=== PATIENT | female | born 1965 | race Caucasian/White ===

== ENCOUNTER 2022-02-16 18:23 | Inpatient (IN) | payer MEDICARE, OTHER ==
[~2022-02-16] VITALS: Ht 165.1 cm; Wt 68.0 kg
[2022-02-16 18:58] VITALS: BP 107/61
[2022-02-16 19:10] VITALS: BP 105/76
[2022-02-16 20:00] VITALS: BP 107/61
[2022-02-16] MEDS ORDERED: MAG HYDROX/AL HYDROX/SIMETH 30 ML UDC PO PRN (20:00)
[2022-02-16] MEDS ORDERED: ACETAMINOPHEN 325 MG TABLET PO PRN (20:00)
[2022-02-16] MEDS ORDERED: MAGNESIUM HYDROXIDE 30 ML UDC PO PRN (20:00)
[2022-02-16] MEDS ORDERED: PALI234D IM (20:57)
[2022-02-16] MEDS ORDERED: DULO30CA2 PO (20:57)
[2022-02-16] MEDS ORDERED: BENZ1TAB7 PO (20:57)
[2022-02-16] MEDS ORDERED: BLOOD SUGAR DIAGNOSTIC 1 EACH STRIP IN ONE (21:00)
--- NOTE | 2022-02-16 23:03 | NUR ---
RN NOTES : ADMISSION NOTES: ADMITTED THIS 57 Y/O FEMALE PATIENT ADMIT FROM [facility], ADMITTED TO GPS ON 5150 HOLD, PER HOLD GD, PT. 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 IS POOR HISTORIAN, POOR INSIGHT ,POOR JUDGEMENT , BOTH MD AWARE AND NOTIFIED OF THE ADMISSION, BELONGINGS CONTRABAND WERE DONE , PT. REFUSED TO SIGNS ADMISSION CONSENT PAPERS DUE TO CONFUSED /DISORGNIZED, REFUSED INTIALLY BLOOD SUGAR CHECK AND REFUSED SKIN ASSESSMENT, ENCOURAGED PT. STRONGLY REFUSED , PT. REFUSED TO PROVIDE MEDICAL HX, PSYCHIATRIC HX, LIST OF MEDICATIONS, ENCOURAGED BUT PT. STILL REFUSED, PT. IS POOR HISTORIAN, POOR INSIGHT ,POOR JUDGEMENT , BOTH MD AWARE AND NOTIFIED OF THE ADMISSION, BELONGINGS CONTRABAND WERE DONE ,ENCOURAGED PT. TO TAKE SHOWER, PT. RIGHTS DISCUSS BY DIRECTOR MARKET INTELLIGENCE , PROVIDE THE PT. WITH HANDBOOK, AND MEDICATIONS GUIDE, ENVIRONMENTAL SAFETY CHECK DONE, ENCOURAGED PT. VERBALIZED ANY FEELING CONCERN TO STAFF, ORIENT TO UNIT POLICY, NO ACUTE DISTRESS NOTED,VITAL SIGNS WNL ,DENIES ANY PAIN AT THIS TIME,WILL CONTINUE TO MONITOR FOR Q15 SAFETY AND BEHAVIOR.
--- NOTE | 2022-02-17 04:57 | NUR ---
RN NOTES: PT.REFUSED SKIN ASSESSMENT ENCOURAGED X3 EXPLINED RISKS AND BENEFITS BUT PT. STRONGLY REFUSED , PER PT. MY SKIN IS FINE, PT. BEHAVIOR UNCOOPERTIVE AGGRESSIVE PARNOID AT THIS TIME.
[2022-02-17 08:06] LABS: BASOPHILS % (AUTO) 0.5 % (0.0-2.0); HEMATOCRIT 39 % (33-45); HEMOGLOBIN 12.8 g/dL (11.5-14.8); LYMPHOCYTES # (AUTO) 1.7 K/uL (0.8-4.8); LYMPHOCYTES % (AUTO) 25.8 % (20.0-44.0); MEAN CORPUSCULAR HGB CONC 33 g/dl (31.0-36.0); MEAN CORPUSCULAR VOLUME 94 fL (82-100); MONOCYTES # (AUTO) 0.7 K/uL (0.1-1.30); MONOCYTES % (AUTO) 10.3 % (2.0-12.0); NEUTROPHILS % (AUTO) 60.4 % (43.0-81.0); PLATELET COUNT (AUTO) 251 K/uL (150-450); RED BLOOD CELL COUNT(AUTO) 4.14 MIL/uL (4.0-5.2); WHITE BLOOD COUNT (AUTO) 6.6 K/uL (4.3-11.0)
[2022-02-17 08:26] LABS: CALCIUM, SERUM 8.8 mg/dL (8.5-10.1); CREATININE 0.6 mg/dL (0.6-1.3); POTASSIUM 4.1 mmol/L (3.5-5.1)
[2022-02-17] MEDS ORDERED: PERMETHRIN 59 ML BOTTLE TP ONE (10:00)
[2022-02-17] MEDS: LITHIUM CARBONATE 150 MG CAPSULE PO SCH ×2 (12:12→16:43)
[2022-02-17] MEDS: risperiDONE 1 MG TABLET PO SCH ×2 (12:12→16:43)
[2022-02-17] MEDS ORDERED: INSULIN REGULAR, HUMAN 100 UNIT/ML 10 ML VIAL ONE (14:28)
[2022-02-17 16:00] VITALS: BP_SYST 100; BP_SYST 102; BP_DIAS 55; BP_DIAS 61
[2022-02-17] MEDS ORDERED: risperiDONE 1 MG TABLET PO SCH (17:00)
[2022-02-17 21:00] VITALS: BP 110/74
[2022-02-17] MEDS: LORAZEPAM 0.5 MG TABLET PO PRN (21:12)
--- NOTE | 2022-02-17 21:12 | NUR ---
RN NOTES: ANXIETY PATIENT IS ANXIOUS, RESTLESS,PARANOID , NON REDIRECTABLE. PRN ATIVAN 0.5 MG PO ADMINISTERED. WILL CONTINUE TO MONITOR.
[2022-02-18] MEDS: TEMAZEPAM 7.5 MG CAPSULE PO PRN (01:17)
--- NOTE | 2022-02-18 01:20 | NUR ---
RN NOTES: INSOMNIA PT. C/O UNABLE TO SLEEP RESTORIL PRN 7.5 MG PO GIVEN PER PT. REQUEST,WILL CONTINUE TO MONITOR.
--- NOTE | 2022-02-18 05:42 | NUR ---
RN NOTES: UNABLE TO OBTAIN URINE SPECIMEN DUE TO PT. CONFUSED FORGETFUL KEEP FLUSHED IN TOILET.
--- NOTE | 2022-02-18 06:40 | NUR ---
GPS RN NOTES PATIENT REFUSING SKIN ASSESSMENT AND PHOTOS PER PROTOCOL; PATIENT ONLY WANTS MEDICATIONS IF NEEDED; PATIENT RE-EDUCATED ON COMPLIANCE, PATIENT VERBALIZED, " I DO NOT CARE, JUST GIVE ME MY MEDICINE." PT. CONFUSED FORGETFUL,UNCOOPERTIVE WITH ADL"S CARE, NONREDIRECTABLE , PT. CAN BE CONTINENT AND INCONTINENT ,SOME TIMES URINATING ON THE BED, PT. REFUSING AM CARE CHANGING SOLID LINEN, CLOTHING WITH URINATION CHARGE NURSE MADE AWARE
[2022-02-18] MEDS: risperiDONE 1 MG TABLET PO SCH ×3 (07:24→17:43)
[2022-02-18] MEDS: LITHIUM CARBONATE 150 MG CAPSULE PO SCH ×2 (07:25→17:43)
[2022-02-18] MEDS: NICOTINE PATCH (14MG) 14 MG PATCH.TD24 TD SCH (08:35)
[2022-02-18] MEDS ORDERED: LITHIUM CARBONATE 150 MG CAPSULE PO ONE (11:00)
[2022-02-18 16:00] VITALS: BP 125/60
--- NOTE | 2022-02-18 17:38 | NUR ---
GPS/RN PT UNABLE TO FOLLOW DIRECTIONS FOR URINE COLLECTION. WILL ENDORSE TO ARCADIO TYLER TO FOLLOW UP
[2022-02-18 20:24] VITALS: BP 153/84
[2022-02-18] MEDS ORDERED: risperiDONE 1 MG TABLET PO SCH (22:00)
--- NOTE | 2022-02-18 22:06 | NUR ---
GPS RN NOTE: PATIENT REFUSED TO COLLECT URINE AT THIS TIME, STATED," I DON'T WANT TO DO IT, I DON'T WANT YOU TO PUT ANYTHING ON THE TOILET, IF YOU DO, I WON'T USE THE TOILET." PATIENT WAS COOPERATIVE TAKING HER MEDICATION BUT UNCOOPERATIVE WITH URINE SPECIMEN COLLECTION. PATIENT ALSO DOES NOT TO CALLED BY NAME CECILIA, STATED," I AM NOT CECILIA, I AM NORMA." PATIENT IS DISORGANIZED, REFUSES TO COOPERATE. WILL CONTINUE TO MONITOR. PATIENT HAD SNACK AND TOLERATED WELL.
[2022-02-19] MEDS: risperiDONE 1 MG TABLET PO SCH ×4 (09:29→21:19)
[2022-02-19] MEDS: LITHIUM CARBONATE 150 MG CAPSULE PO SCH ×2 (09:29→16:14)
[2022-02-19] MEDS: NICOTINE PATCH (14MG) 14 MG PATCH.TD24 TD SCH (09:32)
--- NOTE | 2022-02-19 10:23 | NUR ---
JACI Initial Discharge Note: Patient is currently homeless and will need a nursing facility. Patient does not have any supportive contact. JACI will work with the MD and treatment team to help coordinate appropriate discharge.
--- NOTE | 2022-02-19 10:24 | NUR ---
SW Admit Source: Patient placed on 5150 hold for GD. Patient was found on someones resident. Patient was confused and disorganized. Patient is homeless and will be needing a placement.
[2022-02-19 16:00] VITALS: BP 118/74
[2022-02-19 19:26] VITALS: BP 118/74
[2022-02-19 19:32] VITALS: BP 100/58
[2022-02-19 20:02] LABS: BILIRUBIN,URINE NEGATIVE (NEGATIVE); COLOR,URINE YELLOW (YELLOW); LEUKOCYTE ESTERASE ,URINE NEGATIVE (NEGATIVE); NITRITE, URINE NEGATIVE (NEGATIVE); PH,URINE 6.5 (5.0-8.0); PROTEIN,URINE NEGATIVE (NEGATIVE); UGLUCOSE NEGATIVE (NEGATIVE); UROBILINOGEN,URINE 0.2 EU/dL (0.2)
--- NOTE | 2022-02-20 05:54 | NUR ---
GPS RN NOTE PATIENT BECAME ANXIOUS, LOUD AND RESTLESS, OFFERED ATIVAN PRN BUT PATIENT REFUSED. PATIENT DID CALM DOWN AFTER A WHILE AND IS ASLEEP AT THIS TIME. WILL CONTINUE TO MONITOR.
[2022-02-20 08:39] VITALS: BP 108/54
[2022-02-20] MEDS: LITHIUM CARBONATE 150 MG CAPSULE PO SCH ×3 (08:41→16:57)
[2022-02-20] MEDS: NICOTINE PATCH (14MG) 14 MG PATCH.TD24 TD SCH (08:41)
[2022-02-20] MEDS: risperiDONE 1 MG TABLET PO SCH ×4 (08:41→21:36)
--- NOTE | 2022-02-20 10:14 | NUR ---
SNF Referral: JACI sent clinicals to Kenya wolff from [facility] ([phone]) for placement option. SW sent H & P, progress notes, and medication list.
[2022-02-20 16:16] VITALS: BP 103/67
[2022-02-20 20:24] VITALS: BP 101/52
[2022-02-21 07:19] LABS: ALBUMIN 2.9 g/dL (3.4-5.0); BILIRUBIN,TOTAL 0.2 mg/dL (0.2-1.0); CREATININE 0.5 mg/dL (0.6-1.3); POTASSIUM 4.6 mmol/L (3.5-5.1); TOTAL PROTEIN, SERUM 6.8 g/dL (6.4-8.2)
[2022-02-21 07:28] LABS: BASOPHILS % (AUTO) 0.5 % (0.0-2.0); EOSINOPHILS % (AUTO) 2.8 % (0.0-6.0); HEMATOCRIT 43 % (33-45); LYMPHOCYTES # (AUTO) 1.8 K/uL (0.8-4.8); LYMPHOCYTES % (AUTO) 31.2 % (20.0-44.0); MEAN CORPUSCULAR HGB CONC 33 g/dl (31.0-36.0); MEAN CORPUSCULAR VOLUME 95 fL (82-100); MONOCYTES # (AUTO) 0.6 K/uL (0.1-1.30); MONOCYTES % (AUTO) 10.1 % (2.0-12.0); NEUTROPHILS # (AUTO) 3.2 K/uL (1.8-8.9); NEUTROPHILS % (AUTO) 55.4 % (43.0-81.0); PLATELET COUNT (AUTO) 206 K/uL (150-450); RED BLOOD CELL COUNT(AUTO) 4.52 MIL/uL (4.0-5.2); WHITE BLOOD COUNT (AUTO) 5.8 K/uL (4.3-11.0)
[2022-02-21 08:00] VITALS: BP 113/71
[2022-02-21] MEDS: NICOTINE PATCH (14MG) 14 MG PATCH.TD24 TD SCH (08:21)
[2022-02-21] MEDS: LITHIUM CARBONATE 150 MG CAPSULE PO SCH ×3 (08:24→16:34)
[2022-02-21] MEDS: risperiDONE 1 MG TABLET PO SCH ×3 (08:24→21:46)
[2022-02-21 16:32] VITALS: BP 101/54
[2022-02-21 20:00] VITALS: BP 119/75
--- NOTE | 2022-02-21 21:36 | NUR ---
GPS RN NOTE: MEDICATION REFUSAL PATIENT REFUSED SCHEDULED RISPERDAL 2MG AT 2100. DESPITE OF EDUCATION PROVIDED REGARDING MEDICATION COMPLIANCE. OFFERED X3, BUT PATIENT CONTINUED TO REFUSE. PATIENT STATED "I DON'T TAKE ANY MEDICINE". WILL CONTINUE TO MONITOR.
[2022-02-22 08:00] VITALS: BP 137/71
[2022-02-22] MEDS: risperiDONE 1 MG TABLET PO SCH ×3 (08:42→22:10)
[2022-02-22] MEDS: LITHIUM CARBONATE 150 MG CAPSULE PO SCH ×3 (08:42→16:18)
[2022-02-22] MEDS: NICOTINE PATCH (14MG) 14 MG PATCH.TD24 TD SCH (08:42)
--- NOTE | 2022-02-22 14:23 | NUR ---
Court Hearing Notification: Pt does not have any family to contact for court hearing.
--- NOTE | 2022-02-22 14:24 | NUR ---
Court Hearing: Patient's court hearing for 4750 was today and it was upheld for GD.
[2022-02-22 16:00] VITALS: BP 113/65
[2022-02-22 20:00] VITALS: BP 119/71
--- NOTE | 2022-02-23 06:41 | NUR ---
GPS RN CLOSING NOTES: PATIENT IS CURRENTLY SLEEPING. PATIENT SLEPT 8HR THIS SHIFT. NO S/S OF DISTRESS NOTED. RESPIRATION EVEN AND UNLABORED WITH EQUAL RISE AND FALL OF THE CHEST, ON ROOM AIR. ALL PATIENT CARE NEEDS HAVE BEEN MET ANTICIPATED. WILL CONTINUE TO MONITOR AND ENDORSE TO AM SHIFT.
[2022-02-23 08:00] VITALS: BP 136/78
[2022-02-23] MEDS: risperiDONE 1 MG TABLET PO SCH ×3 (08:28→22:44)
[2022-02-23] MEDS: LITHIUM CARBONATE 150 MG CAPSULE PO SCH ×3 (08:28→16:49)
[2022-02-23] MEDS: NICOTINE PATCH (14MG) 14 MG PATCH.TD24 TD SCH (08:28)
--- NOTE | 2022-02-23 09:20 | NUR ---
RN Notes: Received pt. awake in bed, responsive to staffs and with poor hygiene. Ate 100% for breakfast, compliant on meds. Pt. is guarded upon approached, suspicious and needy. Encouraged to attend group activity and encouraged to take shower. Needs attended and will continue to monitor for safety.
--- NOTE | 2022-02-23 09:45 | NUR ---
RN Notes: Received pt. awake in bed, responsive to staffs and with poor hygiene. Ate 100% for breakfast, compliant on meds. Pt. is guarded upon approached, suspicious and needy. Encouraged to attend group activity and encouraged to take shower. Needs attended and will continue to monitor for safety. Addendum: 02/23/22 at 1258 by TEODORO FROST RN duplicate notes
--- NOTE | 2022-02-23 14:13 | NUR ---
SW Note: SW spoke with patient in regards to facility acceptance/placement. SW expressed that she is accepted at [facility]. She was agreeable of going to [facility].
--- NOTE | 2022-02-23 14:13 | NUR ---
SNF Contact: SW received a call from Kenya wolff from [facility] ([phone]) who stated that pt is accepted.
[2022-02-23 16:00] VITALS: BP 97/50
--- NOTE | 2022-02-23 19:35 | NUR ---
GPS RN OPENING NOTES: RECEIVED PATIENT IN BED. A/O X1-2. PATIENT APPEARS DEPRESSED, PASSIVE, WITHDRAWN, DISORIENTED, DISORGANIZED AND HAS POOR INSIGHT INTO HER PRESENT ILLNESS. DENIES A/V HALLUCINATIONS, DENIES SI/HI AT THIS TIME. NO S/S OF DISTRESS. RESPIRATION EVEN AND UNLABORED WITH EQUAL RISE AND FALL OF THE CHEST, ON ROOM AIR. OFFERED FLUID AND SNACKS TOLERATED. BED IN LOWEST POSITION AND LOCKED, SIDE RAILS UP X2 FOR SAFETY. CALL DAVIS WITHIN REACH. WILL CONTINUE TO MONITOR Q15 FOR MOOD, SAFETY AND BEHAVIOR.
[2022-02-23 20:23] VITALS: BP 101/60
--- NOTE | 2022-02-24 00:12 | NUR ---
GPS RN NOTES: PATIENT HAS LICE CRAWLING ALL OVER PATIENT BED/ROOM. CALLED [facility] TO CONTACT DR SALES. AWAITING DR SALES'S RESPONSE.
--- NOTE | 2022-02-24 01:23 | NUR ---
GPS RN NOTES: DR SALES ORDERED PERMETHRIN NIX SHAMPOO FOR 02/24/22 AT 1000 TO TREAT PATIENT LICE. PATIENT HAD HER FIRST TREATMENT ON 02/17/22 WHICH WAS 7 DAYS AGO. WILL ENDORSE TO AM SHIFT.
--- NOTE | 2022-02-24 06:56 | NUR ---
GPS RN CLOSING NOTES: PATIENT IS CURRENTLY SLEEPING. PATIENT SLEPT 8HR THIS SHIFT. NO S/S OF DISTRESS NOTED. RESPIRATION EVEN AND UNLABORED WITH EQUAL RISE AND FALL OF THE CHEST, ON ROOM AIR. ALL PATIENT CARE NEEDS HAVE BEEN MET ANTICIPATED. BED IN LOW LOCKED POSITION, SIDE RAILS UP X2 FOR SAFETY. CALL DAVIS WITHIN REACH. WILL CONTINUE TO MONITOR AND ENDORSE TO AM SHIFT.
[2022-02-24 08:00] VITALS: BP 119/76
[2022-02-24] MEDS: LITHIUM CARBONATE 150 MG CAPSULE PO SCH ×3 (08:41→16:35)
[2022-02-24] MEDS: NICOTINE PATCH (14MG) 14 MG PATCH.TD24 TD SCH (08:41)
[2022-02-24] MEDS: risperiDONE 1 MG TABLET PO SCH ×3 (08:41→21:23)
[2022-02-24] MEDS ORDERED: PERMETHRIN 59 ML BOTTLE TP ONE (10:00)
--- NOTE | 2022-02-24 14:43 | NUR ---
RN-NOTES PATIENT IS A/O X2, WITH EPISODE OF FORGETFUL,GUARDED EASILY IRRITABLE WHEN APPROACH BUT COOPERATIVE WITH CARE AND COMPLIANT WITH MEDICATIONS. PATIENT IS CURRENTLY ON CONTACT ISOLATION DUE TO HAVING LICE. TREATMENT WAS GIVEN TODAY WITH COOPERATIONS. PATIENT IS AMBULATORY STEADY GAIT ABLE TO MAKE NEEDS KNOWN TO THE STAFF.
[2022-02-24 16:00] VITALS: BP 106/67
[2022-02-24 20:24] VITALS: BP 121/72
--- NOTE | 2022-02-24 21:58 | NUR ---
RN-NOTES: PATIENT IS AWAKE ALERT, DISORGNIZED , EASILY AGITATED PARANOID FORGETFUL,GUARDED , NEEDY DEMENDING , WHEN APPROACH BUT COOPERATIVE WITH CARE AND COMPLIANT WITH MEDICATIONS. PATIENT IS CURRENTLY ON CONTACT ISOLATION DUE TO HAVING LICE. ABLE TO MAKE NEEDS KNOWN TO THE STAFF, NO ACUTE DISTRESS NOTED , ENCOURAGED PT. TO VERBALIZED ANY FEELING OR CONCERN , NEEDS FREQUENTLY REDIRECTIONS , WILL CONTINUE TO MONITOR Q15 SAFETY AND BEHAVIOR.
[2022-02-25 08:00] VITALS: BP 110/74
[2022-02-25] MEDS: risperiDONE 1 MG TABLET PO SCH ×3 (09:22→21:07)
[2022-02-25] MEDS: NICOTINE PATCH (14MG) 14 MG PATCH.TD24 TD SCH (09:22)
[2022-02-25] MEDS: LITHIUM CARBONATE 150 MG CAPSULE PO SCH ×3 (09:22→17:52)
[2022-02-25 16:00] VITALS: BP 118/70
--- NOTE | 2022-02-25 19:30 | NUR ---
GPS RN NOTES RECEIVED PATIENT PACING IN THE HALLWAY, ALERT AND ORIENTED X2. NO S/S OF ACUTE DISTRESS NOTED. PATIENT REMAINS PARANOID, DISORGANIZED, MED COMPLIANT, DISHEVELED, UNKEMPT, CONFUSED AND MED COMPLIANT. SAFETY PRECAUTIONS IN PLACE. WILL CONTINUE TO MONITOR Q15MIN ROUNDS FOR SAFETY AND BEHAVIOR.
--- NOTE | 2022-02-25 20:00 | NUR ---
GPS RN NOTES PATIENT REFUSED WEEKLY SKIN BODY ASSESSMENT
[2022-02-25 20:53] VITALS: BP 117/74
[2022-02-26 08:00] VITALS: BP 132/78
[2022-02-26] MEDS: risperiDONE 1 MG TABLET PO SCH ×3 (08:57→21:21)
[2022-02-26] MEDS: LITHIUM CARBONATE 150 MG CAPSULE PO SCH ×3 (08:58→16:58)
[2022-02-26] MEDS: NICOTINE PATCH (14MG) 14 MG PATCH.TD24 TD SCH (09:13)
--- NOTE | 2022-02-26 09:14 | NUR ---
RECEIVED PT ASLEEP EASY TO AROUSE, PO MEDICATION COMPLIANT HOWEVER REFUSED THE NICOTINE PATCH EDUCATED PURPOSE OF TAKING THE MEDICATION STILL REFUSED WILL RETRY AGAIN DURING SHIFT, PT ABLE TO MAKE NEEDS KNOWN, SKIN AND SCALP INSPECTED FOR EVIDENCE OF LICE NONE NOTED AT THIS TIME, WILL RECHECK AND ASSESS AGAIN FOR ANY EVIDENCE OF REMAINING LICE, ALERT AND ORIENTED X2. NO SOB, NO S/S OF ACUTE DISTRESS NOTED. PATIENT REMAINS PARANOID, DISORGANIZED, DISHEVELED - ENCOURAGED TO TAKE A SHOWER WITH AID OF CARTON FORMING MACHINE HELPER, UNKEMPT REFUSING CARE OF ADL, CONFUSION NOTED, SAFETY PRECAUTIONS IN PLACE. WILL CONTINUE TO MONITOR DURING ROUNDS FOR SAFETY AND BEHAVIOR.
[2022-02-26 16:00] VITALS: BP 100/65
[2022-02-26 19:52] VITALS: BP 113/71
--- NOTE | 2022-02-26 20:00 | NUR ---
GPS RN OPENING NOTE RECEIVED PATIENT SITTING IN ACTIVITY ROOM WATCHING TV. ALERT AND ORIENTED X 2. DENIES PAIN AT THIS TIME. REMAINS PARANOID, DISORGANIZED, DISHEVELED, UNKEPT. PATIENT IS MED COMPLIANT. AMBULATORY WITH STEADY GAIT. ENCOURAGED TO VERBALIZE FEELINGS AND NEEDS. WILL CONTINUE Q15MIN ROUNDS FOR SAFETY AND BEHAVIOR.
--- NOTE | 2022-02-27 06:55 | NUR ---
GPS RN CLOSING NOTE PATIENT CURRENTLY SLEEPING IN BED. ALERT AND ORIENTED X 2. DENIES PAIN AT THIS TIME. REMAINS PARANOID, DISORGANIZED, DISHEVELED, UNKEPT. PATIENT IS MED COMPLIANT. AMBULATORY WITH STEADY GAIT. ENCOURAGED TO VERBALIZE FEELINGS AND NEEDS. CONTINUES ON CONTACT PRECAUTIONS. WILL ENDORSE PLAN OF CARE TO ONCOMING SHIFT.
[2022-02-27 08:00] VITALS: BP 116/55
[2022-02-27] MEDS: LITHIUM CARBONATE 150 MG CAPSULE PO SCH ×3 (09:14→17:46)
[2022-02-27] MEDS: NICOTINE PATCH (14MG) 14 MG PATCH.TD24 TD SCH (09:14)
[2022-02-27] MEDS: risperiDONE 1 MG TABLET PO SCH ×3 (09:15→21:47)
[2022-02-27 16:00] VITALS: BP 105/64
[2022-02-27 19:42] VITALS: BP 107/60
--- NOTE | 2022-02-27 20:00 | NUR ---
GPS RN OPENING NOTE RECEIVED PATIENT SITTING IN ACTIVITY ROOM, PT ALERT/ORIENTED X 2. PATIENT REMAINS PARANOID, DISORGANIZED, DISHEVELED, UNKEPT. PROVIDED PATIENT WITH SNACKS AND FLUIDS, PT IS AMBULATORY WITH STEADY GAIT. WILL CONTINUE TO MONITOR EVERY Q15MIN FOR SAFETY AND BEHAVIOR.
--- NOTE | 2022-02-28 06:36 | NUR ---
GPS RN CLOSING NOTE PATIENT SLEEPING IN BED, ALERT/ORIENTED X 2, PT ABLE TO MAKE NEEDS KNOWN. PATIENT STABLE ON RA, NO S/S OF DISTRESS OR SOB NOTED, BREATHING EVEN AND UNLABORED. MEDICATIONS GIVEN ORDERED, PT MED COMPLIANT. PATIENT CONSTANTLY ASKING FOR FOOD, JUICE AND COFFEE THROUGHOUT SHIFT, PT NEEDS MET. PT REMAINS PARANOID, DISORGANIZED, DISHEVELED, UNKEPT. ASKED PATIENT IF I COULD CLEAN TRASH FROM BEDSIDE TABLE DURING SHIFT, HOWEVER PATIENT REFUSED AND STATED SHE WILL DO IT. PATIENT IS AMBULATORY WITH STEADY GAIT. SAFETY MEASURES MAINTAINED THROUGHOUT SHIFT WITH Q15 MIN CHECKS FOR SAFETY AND BEHAVIOUR. WILL ENDORSE PLAN OF CARE TO ONCOMING SHIFT.
[2022-02-28 08:00] VITALS: BP 107/61
[2022-02-28] MEDS: LITHIUM CARBONATE 150 MG CAPSULE PO SCH ×3 (09:00→17:00)
[2022-02-28] MEDS: NICOTINE PATCH (14MG) 14 MG PATCH.TD24 TD SCH (09:00)
[2022-02-28] MEDS: risperiDONE 1 MG TABLET PO SCH ×3 (09:00→21:26)
--- NOTE | 2022-02-28 12:47 | NUR ---
SNF Referral: SW sent clinicals to [facility] ([phone]) to mariella Min for placement. SW sent H & P, progress notes, and medication list.
[2022-02-28 16:00] VITALS: BP 120/70
--- NOTE | 2022-02-28 16:16 | NUR ---
Individual Counseling: SW met with pt. in activity room. The pt. is paranoid and not appropriate for counseling at this time. SW will monitor patient's ability to participate in future therapeutic milieu.
[2022-02-28 20:00] VITALS: BP 102/68
[2022-02-28] MEDS: TEMAZEPAM 7.5 MG CAPSULE PO PRN (21:27)
[2022-03-01 08:00] VITALS: BP 127/78
[2022-03-01] MEDS: NICOTINE PATCH (14MG) 14 MG PATCH.TD24 TD SCH (09:05)
[2022-03-01] MEDS: risperiDONE 1 MG TABLET PO SCH ×3 (09:06→21:26)
[2022-03-01] MEDS: LITHIUM CARBONATE 150 MG CAPSULE PO SCH ×3 (09:06→16:20)
--- NOTE | 2022-03-01 10:10 | NUR ---
RN NOTES PT REFUSED ALL LABS.
--- NOTE | 2022-03-01 14:38 | NUR ---
RN NOTES PT HAS REFUSED LABS FOR THIRD TIME.
[2022-03-01 16:00] VITALS: BP 105/66
[2022-03-01 20:00] VITALS: BP 131/72
[2022-03-02 08:00] VITALS: BP 105/69
[2022-03-02] MEDS: risperiDONE 1 MG TABLET PO SCH ×3 (08:23→21:23)
[2022-03-02] MEDS: NICOTINE PATCH (14MG) 14 MG PATCH.TD24 TD SCH (08:23)
[2022-03-02] MEDS: LITHIUM CARBONATE 150 MG CAPSULE PO SCH ×3 (08:24→16:33)
--- NOTE | 2022-03-02 14:59 | NUR ---
RN-NOTES PATIENT IN HER ROOM AWAKE,ALERT NOTED WITH ,GUARDED,NOTED WITH EASILY ANGRY AND DEMANDING BEHAVIOR. COMPLIANT WITH MEDICATIONS. AMBULATORY STEADY GAIT. WILL CONT. MONITORING FOR SAFETY AND BEHAVIOR.
[2022-03-02 16:00] VITALS: BP 101/65
[2022-03-02] MEDS: LORAZEPAM 0.5 MG TABLET PO PRN (16:57)
--- NOTE | 2022-03-02 16:57 | NUR ---
RN-NOTES PATIENT IN THE ROOM,NOTED TALKING AND YELLING TO SELF ANGRY UPON APPROACH. ATIVAN 0.5MG P.O GIVEN PRN ORDER. WILL CONT. MONITORING FOR SAFETY AND BEHAVIOR.
--- NOTE | 2022-03-02 17:55 | NUR ---
RN-NOTES PATIENT LAYING IN BED AWAKE,ALERT,CALM NO ACUTE DISTRESS NOTED.
[2022-03-02 20:00] VITALS: BP 110/71
[2022-03-02 20:34] VITALS: BP 110/71
--- NOTE | 2022-03-02 20:56 | NUR ---
RN NOTES: UPON ENDORSEMENT SHE WAS ON WALKING AROUND, A/OX1-2, NO SIGN OF AGITATION, KEPT ON CLOSE WATCH, NEEDS ANTICIPATED, AMBULATORY, STEADY GAIT.FOR LABS TOMORROW CBC,BMP AND LITHIUM LEVEL IN THE MORNING.FALL AND SAFETY PRECAUTION OBSERVED.
[2022-03-02] MEDS: TEMAZEPAM 7.5 MG CAPSULE PO PRN (22:44)
--- NOTE | 2022-03-02 22:45 | NUR ---
RN NOTES: AROUND 10PM SHE AMBULATE GOING TO THE ACTIVITY ROOM AND JOINED OTHERS, SHE WAS TALKING LOUDLY AND WHEN SHE WAS CORRECTED BY FLOORING MACHINE FEEDER SHE GET AGITATED, HAD EPISODE OF ANGRY OUTBURST, CHARGE NURSE WAS ABLE TO INTERCEPT AND CALM HER; RN REDIRECTED HER BACK TO HER ROOM, AFTER SOMETIME, SHE WENT OUT OF THE ROOM, RN APPROACHED, SHE ASKED FOR A SNACK, GIVEN SANDWICH, WATER AND JELLO, THEN SHE ASKED FOR HER MEDICATION FOR SLEEP. -THIS TIME IS CALMER AND POLITE. Addendum: 03/02/22 at 2084 by VALERIE PEGUERO RN ADDED NOTES: SHE TOOK HER SLEEPING PILL AND WENT TO BED, RN COVERED HER WITH BLANKET AND SHE EXPRESS HER GRATITUDE.
--- NOTE | 2022-03-03 06:09 | NUR ---
RN NOTES: PATIENT REFUSED FOR BLOOD TEST.FIELD TALENT QUALIFICATION SPECIALIST WILL RETURN AGAIN LATER. Addendum: 03/03/22 at 0650 by VALERIE PEGUERO RN ADDED NOTES: ABLE TO REST AND SLEEP AFTER HER SNACKS, ENDORSED FOR CONTINUITY OF CARE.
[2022-03-03 08:00] VITALS: BP 128/79
[2022-03-03] MEDS: risperiDONE 1 MG TABLET PO SCH ×3 (08:31→21:35)
[2022-03-03] MEDS: NICOTINE PATCH (14MG) 14 MG PATCH.TD24 TD SCH (08:31)
[2022-03-03] MEDS: LITHIUM CARBONATE 150 MG CAPSULE PO SCH ×3 (08:32→16:41)
[2022-03-03 08:59] LABS: BASOPHILS % (AUTO) 0.5 % (0.0-2.0); EOSINOPHILS % (AUTO) 2.2 % (0.0-6.0); HEMATOCRIT 40 % (33-45); HEMOGLOBIN 13.3 g/dL (11.5-14.8); LYMPHOCYTES # (AUTO) 1.7 K/uL (0.8-4.8); LYMPHOCYTES % (AUTO) 23.1 % (20.0-44.0); MEAN CORPUSCULAR HGB CONC 33 g/dl (31.0-36.0); MEAN CORPUSCULAR VOLUME 94 fL (82-100); MONOCYTES # (AUTO) 0.6 K/uL (0.1-1.30); MONOCYTES % (AUTO) 8.8 % (2.0-12.0); NEUTROPHILS # (AUTO) 4.7 K/uL (1.8-8.9); NEUTROPHILS % (AUTO) 65.4 % (43.0-81.0); PLATELET COUNT (AUTO) 271 K/uL (150-450); RED BLOOD CELL COUNT(AUTO) 4.25 MIL/uL (4.0-5.2); WHITE BLOOD COUNT (AUTO) 7.2 K/uL (4.3-11.0)
[2022-03-03 09:21] LABS: ALBUMIN 2.9 g/dL (3.4-5.0); BILIRUBIN,TOTAL 0.3 mg/dL (0.2-1.0); CALCIUM, SERUM 8.6 mg/dL (8.5-10.1); CREATININE 0.8 mg/dL (0.6-1.3); POTASSIUM 3.8 mmol/L (3.5-5.1); TOTAL PROTEIN, SERUM 6.6 g/dL (6.4-8.2)
--- NOTE | 2022-03-03 14:02 | NUR ---
RN-NOTES PATIENT IN HER ROOM AWAKE,ALERT X2,GUARDED,NOTED WITH EASILY ANGRY AND DEMANDING BEHAVIOR.FOCUS ON COFFEE AND FOOD. COMPLIANT WITH MEDICATIONS. AMBULATORY STEADY GAIT.ALL NEEDS ATTENDED AND ANTICIPATED. WILL CONT. MONITORING FOR SAFETY AND BEHAVIOR.
[2022-03-03 16:00] VITALS: BP 115/90
[2022-03-03 20:26] VITALS: BP 117/68
--- NOTE | 2022-03-04 06:05 | NUR ---
RN-NOTES PATIENT RESTING IN HER ROOM AWAKE ,GUARDED,NOTED WITH EASILY ANGRY AND DEMANDING BEHAVIOR. COMPLIANT WITH MEDICATIONS. WILL CONTINUE. MONITORING FOR SAFETY AND BEHAVIOR.
[2022-03-04 08:00] VITALS: BP 102/53
[2022-03-04] MEDS: NICOTINE PATCH (14MG) 14 MG PATCH.TD24 TD SCH (09:00)
[2022-03-04] MEDS: LITHIUM CARBONATE 150 MG CAPSULE PO SCH ×3 (09:01→17:12)
[2022-03-04] MEDS: risperiDONE 1 MG TABLET PO SCH ×3 (09:01→21:36)
--- NOTE | 2022-03-04 09:57 | NUR ---
RN-CO: PATIENT IS VISIBLE IN THE UNIT, NEEDY, FOCUS ON FOOD. NEEDS LIMIT SETTING. SHE REDIRECTABLE BUT STAFF NEEDS TO SET LIMITS BECAUSE SHE IS NEEDY AND DEMANDING. RESTLESS , DISHEVELED. SHE IS BETTER. WE WILL CONTINUE TO MONITOR..
[2022-03-04 16:00] VITALS: BP 115/61
--- NOTE | 2022-03-04 18:07 | NUR ---
RN-CO: PT REFUSED COVID TEST. ENDORSE TO THE NEXT SHIFT.
--- NOTE | 2022-03-04 19:15 | NUR ---
GPS RN NOTES PATIENT PACING IN THE HALLWAY. ALERT AND ORIENTED X2. NO S/S OF ACUTE DISTRESS NOTED. PATIENT IS VISIBLE IN THE UNIT, NEEDY, FOCUS ON FOOD, REDIRECTABLE. DENIES SI/HI/AVH AT THIS TIME. SAFETY PRECAUTIONS IN PLACE. WILL CONTINUE TO MONITOR Q15MIN ROUNDS FOR SAFETY AND BEHAVIOR.
--- NOTE | 2022-03-04 20:10 | NUR ---
GPS RN NOTES PATIENT REFUSED WEEKLY SKIN BODY ASSESSMENT.
[2022-03-04 20:20] VITALS: BP 101/59
[2022-03-05 08:00] VITALS: BP 107/66
--- NOTE | 2022-03-05 08:08 | NUR ---
SW Discharge Note: Patient will be discharged to jail facility [facility] [address], [place] [address]; ). Please arrange transportation at 2PM. Advisor Consultant spoke with Pako glove maker at [facility]; ([phone], who stated patient will be accepted today. Patient does not have any family to contact. Patient is alert and oriented x2 and is unable to plan for self-care. Patient denies any suicidal or homicidal ideations. Patient is aware and agreeable with discharge plans. Patient will continue to follow-up with (psychiatrist) Dr. Schroeder [address], [place] [address]; ([phone]) and (consumer experience consultant) Dr. Hassan [address] [facility] [address], [place] [address]; ([phone]). Patient refused to sign the homeless waiver upon discharge and a copy was placed in the chart. Homeless resources were provided and include [address] information line for shelters and homeless resources. Patient presents with euthymic and congruent mood.
[2022-03-05] MEDS: NICOTINE PATCH (14MG) 14 MG PATCH.TD24 TD SCH (08:12)
[2022-03-05] MEDS: risperiDONE 1 MG TABLET PO SCH (08:12)
[2022-03-05] MEDS: LITHIUM CARBONATE 150 MG CAPSULE PO SCH ×2 (08:13→12:26)
--- NOTE | 2022-03-05 14:52 | NUR ---
GPS AIRPORT TOWER CONTROLLER NOTES PATIENT DISCHARGED TO SNF IN STABLE CONDITION. A/O X2, ABLE TO MAKE NEEDS KNOWN. ALL DISCHARGE PAPERWORK READY AND SIGNED BY PATIENT. PATIENT DENIES ANY S/I AND H/I. IN GOOD SPIRIT. BELONGINGS PROVIDE TO PATIENT. PATIENT PICKED UP BY 2 video game animator VIA [employer].
== END 2022-03-05 14:40 | DRG 885 ==
LOC: GPS 18:23
PROVIDERS: ADMIT Psychiatry & Neurology Psychosomatic Medicine; ATTEND Nurse Practitioner Family
DX: F25.0 Schizoaffective disorder, bipolar type (principal); F01.50 Vascular dementia, unspecified severity, without behavioral disturbance, psychotic disturbance, mood disturbance, and anxiety; E44.1 Mild protein-calorie malnutrition; F17.210 Nicotine dependence, cigarettes, uncomplicated; Z59.00 Homelessness unspecified; B85.0 Pediculosis due to Pediculus humanus capitis; E88.09 Other disorders of plasma-protein metabolism, not elsewhere classified; R79.89 Other specified abnormal findings of blood chemistry
CPT/HCPCS: 36415; 80048-TC; 80053-TC; 80061-TC; 85025-TC; 87081-TC; 87086-TC; 97116-TC; 97530-TC; J1815